=== PATIENT | male | born 1985 | race Hispanic/Latino ===

== ENCOUNTER 2019-08-25 21:40 | Emergency (ER) | payer SELFPAY ==
[2019-08-25] MEDS ORDERED: ACETAMINOPHEN 500 MG TAB ONE (23:23)
--- NOTE | 2019-08-26 00:18 | ER ---
Nurse's Notes [facility] Name: Scotty Alcantara Age: 34 yrs Sex: Male : 1985 Arrival Date: 08/25/2019 Time: 21:44 Bed 30 Private MD: Diagnosis: Influenza due to unidentified influenza virus Presentation: 08/24 21:51 Chief complaint: Patient states: Sore throat, fever, bodyaches, chills, and headache aj1 since since 1300 today. Coronavirus screen: The patient has NOT traveled to a country currently being monitored by the [facility] within the last 14 days. Ebola Screen: Patient denies travel to an Ebola-affected area in the 21 days before illness onset. Initial Sepsis Screen: Does the patient meet any 2 criteria? No. Patient's initial sepsis screen is negative. Does the patient have a suspected source of infection? Yes: Productive cough/pneumonia. Initial Sepsis Screen: Does the patient meet any 2 criteria? HR > 90 bpm. Risk Assessment: Do you want to hurt yourself or someone else? Patient reports no desire to harm self or others. 21:51 Method Of Arrival: Ambulatory aj 21:51 Acuity: ARABELLA 4 aj1 Triage Assessment: 21:52 General: Appears in no apparent distress. comfortable, Behavior is calm, cooperative, aj1 appropriate for age. Pain: Pain currently is 9 out of 10 on a pain scale. EENT: Denies nasal congestion, nasal discharge, sore throat. Neuro: Level of Consciousness is awake, alert, obeys commands. Cardiovascular: Patient's skin is warm and dry. Respiratory: Airway is patent Respiratory effort is even, unlabored, Respiratory pattern is regular, symmetrical. Historical: - Allergies: 21:52 No Known Allergies; aj1 - Home Meds: 21:52 None [Active]; aj1 - PMHx: 21:52 None; aj1 - PSHx: 21:52 None; aj1 - Immunization history:: Flu vaccine is not up to date. - Social history:: Smoking status: Patient denies any tobacco usage or history of. Screenin:00 Abuse screen: Denies threats or abuse. Nutritional screening: No deficits noted. vc Tuberculosis screening: No symptoms or risk factors identified. Fall Risk None identified. Assessment: 22:00 General: Appears in no apparent distress. uncomfortable, ill, Behavior is calm, vc cooperative, appropriate for age. Pain: Complains of pain in body aches. Neuro: Level of Consciousness is awake, alert, obeys commands. Cardiovascular: Capillary refill < 3 seconds Patient's skin is warm and dry. Respiratory: Airway is patent Respiratory effort is even, unlabored, Respiratory pattern is regular, symmetrical, Sputum is. GI: No signs and/or symptoms were reported involving the gastrointestinal system. : No signs and/or symptoms were reported regarding the genitourinary system. EENT: No signs and/or symptoms were reported regarding the EENT system. Derm: Skin temperature is hot. Musculoskeletal: Circulation, motion, and sensation intact. Range of motion: intact in all extremities. 23:00 Reassessment: Patient and/or family updated on plan of care and expected duration. Pain vc level reassessed. Patient states symptoms have not improved. 08/25 00:12 Reassessment: Patient and/or family updated on plan of care and expected duration. Pain vc level reassessed. Patient states symptoms have not improved. Vital Signs: 08/24 21:52 BP 118 / 83; Pulse 114; Resp 20; Temp 100.4(TE); Pulse Ox 98% on R/A; Weight 78.47 kg aj1 (R); Height 5 ft. 6 in. (167.64 cm) (R); 22:30 BP 110 / 77; Pulse 112; Resp 20; Pulse Ox 96% on R/A; vc 23:30 BP 107 / 71; Pulse 106; Resp 19; Pulse Ox 95% on R/A; vc 23:56 Temp 100.5(O); vc 21:52 Body Mass Index 27.92 (78.47 kg, 167.64 cm) aj1 ED Course: 21:44 Patient arrived in ED. jg7 21:52 Triage completed. aj1 21:52 Arm band placed on Patient placed in an exam room. aj1 21:59 Paulino Fountain PA is PHCP. cp 21:59 Paulino Vang MD is Attending Physician. cp 22:00 Patient has correct armband on for positive identification. roof service technician on. Pulse vc ox on. 22:12 Chiquis Mcclure RN is Primary Nurse. vc 22:12 Strep Sent. vc 22:12 Influenza Screen (a \T\ B) Sent. vc 23:43 No provider procedures requiring assistance completed. vc 08/25 00:25 Patient did not have IV access during this emergency room visit. vc Administered Medications: 08/24 23:00 Drug: Tylenol 1000 mg Route: PO; vc 08/25 00:19 Follow up: Response: No adverse reaction vc Intake: 08/24 23:30 IV: 1000ml; Total: 1000ml. vc Outcome: 08/25 00:18 Discharge ordered by . sondra 00:25 Discharged to home ambulatory. vc 00:25 Condition: good 00:25 Discharge instructions given to patient, Instructed on discharge instructions, follow up and referral plans. medication usage, Demonstrated understanding of instructions, follow-up care, medications, Prescriptions given X 1, 2. 00:26 Patient left the ED. vc Signatures: Mayra Rodgers, RN RN aj1 Paulino Fountain PA PA cp Gutierrez, Jessica jg7 Chiquis Mcclure RN RN vc
--- NOTE | 2019-08-26 00:19 | EDPHYS ---
Physician Documentation [facility] Name: Scotty Alcantara Age: 34 yrs Sex: Male : 1985 Arrival Date: 08/25/2019 Time: 21:44 Bed 30 Private MD: ED Physician Paulino Vang HPI: 08/24 22:05 This 34 yrs old Male presents to ER via Ambulatory with complaints of Fever, Dizziness, cp BODY ACHES. 22:05 The patient reports fever, with an emergency department temperature of 100.4 degrees cp Fahrenheit. Onset: The symptoms/episode began/occurred today. Associated signs and symptoms: Pertinent positives: sore throat, slight cough, body aches, Pertinent negatives: abdominal pain, chest pain, diarrhea, vomiting. Severity of symptoms: in the emergency department the symptoms are unchanged. Historical: - Allergies: 21:52 No Known Allergies; aj1 - Home Meds: 21:52 None [Active]; aj1 - PMHx: 21:52 None; aj1 - PSHx: 21:52 None; aj1 - Immunization history:: Flu vaccine is not up to date. - Social history:: Smoking status: Patient denies any tobacco usage or history of. ROS: 22:15 Constitutional: Positive for body aches, fever, Negative for poor PO intake. cp 22:15 Eyes: Negative for injury, pain, redness, and discharge. cp 22:15 ENT: Positive for sore throat, Negative for drainage from ear(s), ear pain, difficulty swallowing, difficulty handling secretions. 22:15 Neck: Negative for stiffness. 22:15 Cardiovascular: Negative for chest pain. 22:15 Respiratory: Positive for cough, Negative for shortness of breath, wheezing. 22:15 Abdomen/GI: Negative for abdominal pain, nausea, vomiting, and diarrhea. 22:15 Skin: Negative for rash. 22:15 Neuro: Positive for headache, Negative for altered mental status, dizziness, weakness. 22:15 All other systems are negative. Exam: 22:20 Constitutional: The patient appears in no acute distress, alert, awake, non-toxic, well cp developed, well nourished. 22:20 Head/Face: Normocephalic, atraumatic. cp 22:20 Eyes: Periorbital structures: appear normal, Conjunctiva: normal, no exudate, no injection, Lids and lashes: appear normal, bilaterally. 22:20 ENT: External ear(s): are unremarkable, Ear canal(s): are normal, clear, TM's: are normal, no evidence of bulging, no erythema, Nose: is normal, Mouth: Lips: moist, Oral mucosa: moist, Posterior pharynx: Airway: no evidence of obstruction, patent, Tonsils: no enlargement, no exudate, Uvula: midline, swelling, is not appreciated, erythema, that is mild, exudate, is not appreciated. 22:20 Neck: ROM/movement: Meningeal signs: are not present, nuchal rigidity, is not appreciated, Lymph nodes: no appreciated lymphadenopathy. 22:20 Chest/axilla: Inspection: normal, Palpation: is normal, no crepitus, no tenderness. 22:20 Cardiovascular: Rate: tachycardic, Rhythm: regular. 22:20 Respiratory: the patient does not display signs of respiratory distress, Respirations: normal, no use of accessory muscles, no retractions, labored breathing, is not present, Breath sounds: are clear throughout, no decreased breath sounds, no stridor, no wheezing. 22:20 Abdomen/GI: Inspection: abdomen appears normal, Palpation: abdomen is soft and non-tender, in all quadrants. 22:20 Skin: no rash present. 22:20 Neuro: Orientation: to person, place \T\ time. Mentation: is normal, Motor: moves all fours, strength is normal. Vital Signs: 21:52 BP 118 / 83; Pulse 114; Resp 20; Temp 100.4(TE); Pulse Ox 98% on R/A; Weight 78.47 kg aj1 (R); Height 5 ft. 6 in. (167.64 cm) (R); 22:30 BP 110 / 77; Pulse 112; Resp 20; Pulse Ox 96% on R/A; vc 23:30 BP 107 / 71; Pulse 106; Resp 19; Pulse Ox 95% on R/A; vc 23:56 Temp 100.5(O); vc 21:52 Body Mass Index 27.92 (78.47 kg, 167.64 cm) [facility] MDM: 22:01 Patient medically screened. [facility] 08/25 00:17 Data reviewed: vital signs, nurses notes, lab test result(s), and as a result, I will cp discharge patient. 00:17 Differential diagnosis: URI, bronchitis, pneumonia meningitis, influenza, strep throat. cp Counseling: I had a detailed discussion with the patient and/or guardian regarding: the historical points, exam findings, and any diagnostic results supporting the discharge/admit diagnosis, lab results, to return to the emergency department if symptoms worsen or persist or if there are any questions or concerns that arise at home. Response to treatment: the patient's symptoms have mildly improved after treatment. 08/24 22:01 Order name: Influenza Screen (a \T\ B); Complete Time: 23:34 cp 08/24 23:34 Interpretation: Reviewed. cp 08/24 22:01 Order name: Strep; Complete Time: 23:34 cp 08/24 23:34 Interpretation: Reviewed. cp Administered Medications: 08/24 23:00 Drug: Tylenol 1000 mg Route: PO; vc 08/25 00:19 Follow up: Response: No adverse reaction vc Disposition: 07:36 Co-signature as Attending Physician, Paulino Vang MD I agree with the assessment and [facility] plan of care. Disposition: 08/26/19 00:18 Discharged to Home. Impression: Influenza due to unidentified influenza virus. - Condition is Stable. - Discharge Instructions: Influenza, Adult. - Prescriptions for Ibuprofen 800 mg Oral Tablet - take 1 tablet by ORAL route every 8 hours As needed take with food; 30 tablet. Tamiflu 75 mg Oral Capsule - take 1 tablet by ORAL route every 12 hours for 5 days; 10 tablet. - Medication Reconciliation Form, Thank You Letter, Antibiotic Education, Prescription Opioid Use, Work release form form. - Follow up: Private Physician; When: 2 - 3 days; Reason: Worsening of condition. - Problem is new. - Symptoms are unchanged. Signatures: Dispatcher [employer] Mayra Walters RN RN aj1 Paulino Vang MD MD cha Page, Corey, PA PA cp Calcote, Vanessa, RN RN vc Corrections: (The following items were deleted from the chart) 00:26 00:18 08/26/2019 00:18 Discharged to Home. Impression: Influenza due to unidentified vc influenza virus. Condition is Stable. Forms are Medication Reconciliation Form, Thank You Letter, Antibiotic Education, Prescription Opioid Use. Follow up: Private Physician; When: 2 - 3 days; Reason: Worsening of condition. Problem is new. Symptoms are unchanged. cp
[2019-08-26 00:44] VITALS: BP 107/71; O2SAT 95
[2019-08-26 00:46] VITALS: TEMP 100.5
== END 2019-08-26 00:26 | disposition home or self-care (01) ==
LOC: ER 21:40
DX: J11.1 Influenza due to unidentified influenza virus with other respiratory manifestations (principal)
CPT/HCPCS: 87070; 87081; 87804; 99284